=== PATIENT | female | born 2000 | race American Indian/Alaskan Native ===

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

== ENCOUNTER 2020-05-14 14:32 | Emergency (ER) | payer MEDICAID ==
[2020-05-14 15:02] VITALS: BP 110/60
== END 2020-05-14 17:27 | disposition left against medical advice (07) ==
LOC: ED 14:32
DX: R11.2 Nausea with vomiting, unspecified (principal); Z53.21 Procedure and treatment not carried out due to patient leaving prior to being seen by health care provider

== ENCOUNTER 2021-02-13 06:05 | Emergency (ER) | payer MEDICAID | END 2021-02-13 07:08 | disposition left against medical advice (07) | LOC: ED 06:05 | DX: O26.891 Other specified pregnancy related conditions, first trimester (principal); R10.9 Unspecified abdominal pain; Z3A.12 12 weeks gestation of pregnancy; Z53.21 Procedure and treatment not carried out due to patient leaving prior to being seen by health care provider ==

== ENCOUNTER 2021-09-08 13:28 | Outpatient (CLI) | payer MEDICAID ==
[2021-09-08] MEDS ORDERED: LACTATED RINGERS 1,000 ML IV ONE (14:13)
[2021-09-08] MEDS ORDERED: LACTATED RINGERS 1,000 ML ONE (14:17)
[2021-09-08 14:51] LABS: Mean Corpuscular HGB Conc 30 % (30-34); Mean Corpuscular Volume 72 fl (79-97); Platelet Count 431 K/mm3 (140-440); Red Cell Distribution Width 18.3 % (13.2-15.2)
[2021-09-08 14:56] LABS: Hematocrit 30.8 % (30.3-42.9); Hemoglobin 9.2 gm/dl (10.1-14.3)
[2021-09-08 15:41] LABS: Alanine Aminotransferase 11 units/L (7-56); Uric Acid 4.2 mg/dL (3.5-7.6)
[2021-09-08 16:00] LABS: Bacteria,Urine 1+ /HPF (Negative); Bilirubin,Urine NEG (Negative); Blood,Urine NEG (Negative); Color,Urine Straw (Yellow); Protein,Urine <15 mg/dL mg/dL (Negative); Urobilinogen,Urine < 2.0 mg/dL (<2.0)
[2021-09-08] MEDS ORDERED: oxyCODONE /ACETAMINOPHEN 5-325MG TAB PO ONE (16:28)
[2021-09-08 16:31] VITALS: BP 130/81
== END 2021-09-08 16:42 | disposition home or self-care (01) ==
LOC: TRG 13:28 → APU 13:30 → TRG 16:42
PROVIDERS: ATTEND Obstetrics & Gynecology
DX: O62.9 Abnormality of forces of labor, unspecified (principal); O48.0 Post-term pregnancy; O99.013 Anemia complicating pregnancy, third trimester; D64.9 Anemia, unspecified; Z3A.40 40 weeks gestation of pregnancy
CPT/HCPCS: 36415; 59025; 81001; 82565; 83615; 84450; 84460; 84550; 85027; 96360; J7120

== ENCOUNTER 2021-11-19 12:27 | Emergency (ER) | payer MEDICAID ==
[2021-11-19] MEDS ORDERED: SODIUM CHLORIDE 0.9% 1000 ML 1,000 ML IV ONE (12:40)
--- NOTE | 2021-11-19 12:40 | Emergency Department Report ---
HPI - General Chief Complaint: Overdose Time Seen by Provider: 11/19/21 12:31 - HPI HPI: Room 22 The patient is a 21-year-old female present with a chief complaint of heroin overdose. Per EMS the patient was found unresponsive by her friend. EMS was [facility] and found the patient unresponsive hypoxic to 45% on room air. Patient was administered Narcan 2 mg intranasally with eventual improvement in mental status. Upon arrival to the ED the patient is awake and alert and talking on cell phone. Patient denies complaints. Patient initially refusing all care and wanting to leave. I explained to the patient that the Narcan will eventually wear off and she may return to her previous state. Patient verbalized understanding and now agrees to treatment/observation ED Past Medical Hx - Surgical History Past Surgical History?: No - Family History Family history: no significant - Social History Smoking Status: Never Smoker Substance Use Type: Heroin - Medications Home Medications: Home Medications Medication Instructions Recorded Confirmed Last Taken Type No Known Home Medications [No 09/11/21 09/11/21 Unknown History Reported Home Medications] ED Review of Systems ROS: Stated complaint: OD Other details as noted in HPI Constitutional: no symptoms reported Eyes: denies: eye pain ENT: denies: throat pain Respiratory: no symptoms reported Cardiovascular: denies: chest pain Endocrine: no symptoms reported Gastrointestinal: denies: abdominal pain Genitourinary: denies: dysuria Musculoskeletal: denies: back pain Neurological: denies: headache Physical Exam - Physical Exam Physical Exam: GENERAL: The patient is well-developed well-nourished female sitting on stretcher talking on cell phone, clothes are wet from incontinence. [] HEENT: Normocephalic. Atraumatic. Extraocular motions are intact. Patient has moist mucous membranes. NECK: Supple. Trachea midline CHEST/LUNGS: Clear to auscultation. There is no respiratory distress noted. HEART/CARDIOVASCULAR: Regular. There is tachycardia. There is no gallop rub or murmur. ABDOMEN: Abdomen is soft, nontender. Patient has normal bowel sounds. There is no abdominal distention. SKIN: There is no rash. There is no edema. There is no diaphoresis. NEURO: The patient is awake, alert, and oriented. The patient is cooperative. The patient has no focal neurologic deficits. The patient has normal speech. GCS 15 MUSCULOSKELETAL: There is no evidence of acute injury. ED Course - Reevaluation(s) Reevaluation #1: 11/19/21 13:51 Patient begins to noD off again and her SPO2 decreases to the 70s. Will administer Narcan 2 mg IV x1 and continue to observe Reevaluation #2: 11/19/21 17:46 Patient observed by nursing to maintain SPO2. Patient awake and speaking clearly ED Medical Decision Making - Lab Data Result diagrams: 11/19/21 12:59 11/19/21 12:59 Laboratory Tests 11/19/21 11/19/21 11/19/21 12:59 12:59 12:59 WBC 10.6 RBC 3.36 L Hgb 8.0 L Hct 26.6 L MCV 79 MCH 24 L MCHC 30 RDW 22.5 H Plt Count 297 Lymph % (Auto) 12.8 L [place] % (Auto) 4.1 Eos % (Auto) 0.8 Baso % (Auto) 0.2 Lymph # (Auto) 1.4 [place] # (Auto) 0.4 Eos # (Auto) 0.1 Baso # (Auto) 0.0 Seg Neutrophils % 82.1 H Seg Neutrophils # 8.7 H Sodium 140 Potassium 3.0 L Chloride 103.5 Carbon Dioxide 22 Anion Gap 18 BUN 10 Creatinine 0.7 Estimated GFR > 60 BUN/Creatinine Ratio 14 Glucose 219 H Calcium 8.1 L Total Creatine Kinase 103 CK-MB (CK-2) 1.5 CK-MB (CK-2) Rel Index 1.4 Troponin T < 0.010 HCG, Qual Urine Opiates Screen Urine Methadone Screen Ur Barbiturates Screen Ur Phencyclidine Scrn Ur Amphetamines Screen U Benzodiazepines Scrn Urine Cocaine Screen U Marijuana (THC) Screen Drugs of Abuse Note Plasma/Serum Alcohol < 0.01 11/19/21 11/19/21 12:59 15:36 WBC RBC Hgb Hct MCV MCH MCHC RDW Plt Count Lymph % (Auto) [place] % (Auto) Eos % (Auto) Baso % (Auto) Lymph # (Auto) [place] # (Auto) Eos # (Auto) Baso # (Auto) Seg Neutrophils % Seg Neutrophils # Sodium Potassium Chloride Carbon Dioxide Anion Gap BUN Creatinine Estimated GFR BUN/Creatinine Ratio Glucose Calcium Total Creatine Kinase CK-MB (CK-2) CK-MB (CK-2) Rel Index Troponin T HCG, Qual Negative Urine Opiates Screen Presumptive negative Urine Methadone Screen Presumptive negative Ur Barbiturates Screen Presumptive negative Ur Phencyclidine Scrn Presumptive negative Ur Amphetamines Screen Presumptive positive U Benzodiazepines Scrn Presumptive negative Urine Cocaine Screen Presumptive negative U Marijuana (THC) Screen Presumptive positive Drugs of Abuse Note Disclamer Plasma/Serum Alcohol - EKG Data -: EKG Interpreted by Me EKG shows normal: sinus rhythm Rate: tachycardia (116 bpm) - EKG Data When compared to previous EKG there are: previous EKG unavailable Interpretation: other (No ischemic changes seen) - Differential Diagnosis Heroin overdose Critical care attestation.: If time is entered above; I have spent that time in minutes in the direct care of this critically ill patient, excluding procedure time. ED Disposition Clinical Impression: Heroin overdose, Hypokalemia, Amphetamine abuse Disposition: 01 HOME / SELF CARE / HOMELESS Is pt being admited?: No Does the pt Need Aspirin: No Condition: Stable Referrals: PRIMARY CAREMD [Primary Care Provider] - 3-5 Days Time of Disposition: 17:46
[2021-11-19 13:39] LABS: Basophils % (Auto) 0.2 % (0.0-1.8); Eosinophils # (Auto) 0.1 K/mm3 (0.0-0.4); Eosinophils % (Auto) 0.8 % (0.0-4.3); Hematocrit 26.6 % (30.3-42.9); Lymphocytes # (Auto) 1.4 K/mm3 (1.2-5.4); Lymphocytes % (Auto) 12.8 % (13.4-35.0); Mean Corpuscular HGB Conc 30 % (30-34); Mean Corpuscular Volume 79 fl (79-97); Monocytes # (Auto) 0.4 K/mm3 (0.0-0.8); Monocytes % (Auto) 4.1 % (0.0-7.3); Platelet Count 297 K/mm3 (140-440); Red Blood Count 3.36 M/mm3 (3.65-5.03); Red Cell Distribution Width 22.5 % (13.2-15.2)
[2021-11-19] MEDS ORDERED: NALOXONE 0.4 MG/1 ML INJ IV ONE (13:51)
[2021-11-19] MEDS ORDERED: NALOXONE 2 MG/2 ML INJ ONE (13:51)
[2021-11-19 14:02] LABS: Creatine Kinase MB 1.5 ng/mL (0.0-4.0)
[2021-11-19 14:05] LABS: Blood Urea Nitrogen 10 mg/dL (7-17); Calcium 8.1 mg/dL (8.4-10.2); Hemolysis Index 4
[2021-11-19 14:09] LABS: BUN/Creatinine Ratio 14
[2021-11-19] MEDS ORDERED: POTASSIUM CHLORIDE ER 20 MEQ TAB PO ONE (15:11)
[2021-11-19 16:29] LABS: Amphetamine Screen,Urine PRESUMPTIVE POSITIVE; Benzodiazepines Screen,Urine PRESUMPTIVE NEGATIVE; Cannabinoid Screen,Urine PRESUMPTIVE POSITIVE; Cocaine Screen,Urine PRESUMPTIVE NEGATIVE; Methadone Screen,Urine PRESUMPTIVE NEGATIVE; Opiate Screen,Urine PRESUMPTIVE NEGATIVE
[2021-11-19 18:29] VITALS: BP 135/82
--- NOTE | 2021-11-21 18:59 | Electrocardiograph Report ---
[facility] Test Date: 2021-11-19 Test Time: 12:34:54 Pat Name: VICTORIA CARROLL Department: Room: Gender: F Test Center Manager: ANUSHA : 2000 Requested By: LINDA ESPITIA Order Number: [id number] Reading MD: Gunnar Bran Measurements Intervals [place] Rate: 116 P: 72 FL: 153 QRS: 48 QRSD: 82 T: 26 QT: 340 QTc: 471 Interpretive Statements Sinus tachycardia NSST'W No previous ECG available for comparison Electronically Signed On 11-21-2021 18:59:13 EDT by Gunnar Bran
== END 2021-11-19 18:30 | disposition home or self-care (01) ==
LOC: ED 12:27
DX: T40.1X1A Poisoning by heroin, accidental (unintentional), initial encounter (principal); E87.6 Hypokalemia; F19.10 Other psychoactive substance abuse, uncomplicated; Y92.89 Other specified places as the place of occurrence of the external cause
CPT/HCPCS: 36415; 80048; 80307; 82550; 82553; 84484; 84703; 85025; 93005; 96361; 96374; 99284; J2310; 80320; G0480

== ENCOUNTER 2021-11-20 20:29 | Emergency (ER) | payer MEDICAID ==
[2021-11-20 21:09] VITALS: BP 122/77
--- NOTE | 2021-11-20 21:54 | Emergency Department Report ---
History of Present Illness - General Chief Complaint: Overdose Stated Complaint: OD Time Seen by Provider: 11/20/21 21:30 Source: patient, family, EMS Mode of arrival: Stretcher Limitations: No Limitations - History of Present Illness MD Complaint: accidental overdose -: Sudden How Overdose Was Discovered: other Context: Intentional Overdose: drug/ETOH problems Treatments Prior to Arrival: other (The patient was intubated in the field by the paramedics and was given Narcan. On arrival to the emergency department she had been extubated.) - Related Data Home Medications Medication Instructions Recorded Confirmed Last Taken No Known Home Medications [No 09/11/21 09/11/21 Unknown Reported Home Medications] Allergies Allergy/AdvReac Type Severity Reaction Status Date / Time No Known Allergies Allergy Verified 11/19/21 12:30 ED Review of Systems ROS: Stated complaint: OD Other details as noted in HPI Comment: All other systems reviewed and negative ED Past Medical Hx - Social History Smoking Status: Never Smoker Substance Use Type: Heroin - Medications Home Medications: Home Medications Medication Instructions Recorded Confirmed Last Taken Type No Known Home Medications [No 09/11/21 09/11/21 Unknown History Reported Home Medications] ED Physical Exam - General Limitations: No Limitations General appearance: alert, in no apparent distress - Head Head exam: Present: atraumatic, normocephalic - Eye Eye exam: Present: normal appearance - ENT ENT exam: Present: mucous membranes moist - Neck Neck exam: Present: normal inspection - Respiratory Respiratory exam: Present: normal lung sounds bilaterally. Absent: respiratory distress - Cardiovascular Cardiovascular Exam: Present: regular rate, normal rhythm. Absent: systolic murmur, diastolic murmur, rubs, gallop - GI/Abdominal GI/Abdominal exam: Present: soft, normal bowel sounds - Rectal Rectal exam: Present: deferred - Extremities Exam Extremities exam: Present: full ROM, other (Needle tracks noted) - Neurological Exam Neurological exam: Present: alert, oriented X3 - Psychiatric Psychiatric exam: Present: normal affect, normal mood ED Course Vital Signs 11/20/21 11/20/21 20:45 22:14 Temperature 98 F 98.1 F Pulse Rate 137 H 137 H Respiratory 16 16 Rate Blood Pressure 122/77 122/77 [Right] O2 Sat by Pulse 98 98 Oximetry ED Medical Decision Making - Medical Decision Making The patient on mental status examination no severe she is, 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 She demonstrates that she is alert and oriented x3. She is accompanied by the father of her child, who agrees to take responsibility for her. He does not appear intoxicated and is also alert and oriented. Critical care attestation.: If time is entered above; I have spent that time in minutes in the direct care of this critically ill patient, excluding procedure time. ED Disposition Clinical Impression: Drug overdose of undetermined intent Qualifiers: Encounter type: initial encounter Qualified Code(s): T50.904A - Poisoning by un specified drugs, medicaments and biological substances, undetermined, initial encounter Heroin overdose Qualifiers: Encounter type: initial encounter Injury intent: undetermined intent Qualified Code(s): T40.1X4A - Poisoning by heroin, undetermined, initial encounter Disposition: 07 LEFT AWOL/ELOPED Is pt being admited?: No Does the pt Need Aspirin: No Condition: Stable Instructions: Opioid Overdose Referrals: JAIME JUARES MD [Primary Care Provider] - 3-5 Days Forms: AMA Form
== END 2021-11-20 22:16 | disposition left against medical advice (07) ==
LOC: ED 20:29
DX: T40.1X1A Poisoning by heroin, accidental (unintentional), initial encounter (principal); Y92.89 Other specified places as the place of occurrence of the external cause
CPT/HCPCS: 99283